=== PATIENT | female | born 1930 | race Native Hawaiian/Other Pacific Islander ===

== ENCOUNTER 2019-12-28 08:17 | Inpatient (IN) | payer MEDICARE, MEDICAID ==
[~2019-12-28] VITALS: Ht 160 cm; Wt 44.5 kg
[2019-12-28] MEDS ORDERED: ONDANSETRON HCL 4 MG/2 ML VIAL IM ONE (08:45)
[2019-12-28] MEDS ORDERED: MORPHINE SULFATE 4 MG/ML SYRINGE IM ONE (08:45)
[2019-12-28 09:01] LABS: BASOPHILS % (AUTO) 0.6 % (0.0-2.0); EOSINOPHILS % (AUTO) 1.9 % (1.0-6.0); HEMATOCRIT 39.1 % (36-46); HEMOGLOBIN 12.8 g/dL (12.0-16.0); LYMPHOCYTES # (AUTO) 1.6 K/uL (1.0-4.8); LYMPHOCYTES % (AUTO) 29.4 % (22.0-44.0); MEAN CORPUSCULAR HGB CONC 32.9 G/dL (31.0-37.0); MEAN CORPUSCULAR VOLUME 95 fL (80-100); MONOCYTES # (AUTO) 0.4 K/uL (0.1-1.0); MONOCYTES % (AUTO) 8.3 % (2.0-9.0); NEUTROPHILS # (AUTO) 3.2 K/uL (1.8-7.7); NEUTROPHILS % (AUTO) 59.8 % (40.0-70.0); PLATELET COUNT (AUTO) 216 K/uL (150-450); RED BLOOD CELL COUNT(AUTO) 4.13 MIL/uL (4.00-5.20); RED CELL DISTRIBUTION WIDTH 13.3 % (11.5-14.5)
[2019-12-28 09:13] LABS: INR 0.9 (0.9-1.1); PROTHROMBIN TIME 9.5 SEC (9.4-11.6)
[2019-12-28 09:14] LABS: ANION GAP 3 mmol/L (8-16); CALCIUM, TOTAL 9.3 mg/dL (8.8-10.5); CARBON DIOXIDE 32 mmol/L (22-29); CHLORIDE 105 mmol/L (98-107); CREATININE 0.85 mg/dL (0.60-1.30); GLUCOSE,RANDOM 100 mg/dL (70-110); POTASSIUM 3.2 mmol/L (3.5-5.1); SODIUM SERUM 140 mmol/L (136-145); UREA NITROGEN, BLOOD 19 mg/dL (7-18)
[2019-12-28 09:18] LABS: GLOMERULAR FILTR. RATE CALC > 60 mL/min (>60)
[2019-12-28 09:20] LABS: ALANINE AMINOTRANSFERASE 34 U/L (12-78); ALBUMIN 3.5 g/dL (3.4-5.0); ALKALINE PHOSPHATASE 73 U/L (46-116); ASPARTATE AMINOTRANSFERASE 24 U/L (15-37); BILIRUBIN,TOTAL 0.5 mg/dL (0.1-1.0); TOTAL PROTEIN, SERUM 7.6 g/dL (6.4-8.2)
[2019-12-28] MEDS ORDERED: MORPHINE SULFATE 4 MG/ML SYRINGE IVP ONE (14:00)
[2019-12-28] MEDS ORDERED: MORPHINE SULFATE 2 MG/ML SYRINGE IVP ONE (14:30)
[2019-12-28] MEDS ORDERED: POTASSIUM CHLORIDE 10% 40 MEQ/30 ML LIQUID UDCUP PO ONE (14:30)
[2019-12-28] MEDS ORDERED: HYDROCODONE/ACETAMINOPHEN 5-325 MG TABLET PO PRN (15:30)
[2019-12-28] MEDS ORDERED: POTASSIUM CHLORIDE 20 MEQ ER TABLET PO PRN (15:30)
[2019-12-28] MEDS ORDERED: POTASSIUM CHL 10 MEQ/WATER 50 ML IV PRN (15:30)
[2019-12-28] MEDS ORDERED: BISACODYL 10 MG RECTAL RECTAL SUPPOSITORY PR PRN (15:30)
[2019-12-28] MEDS ORDERED: ZOLPIDEM TARTRATE 5 MG TABLET PO PRN (15:30)
[2019-12-28] MEDS ORDERED: ACETAMINOPHEN 325 MG TABLET PO PRN (15:30)
[2019-12-28] MEDS ORDERED: MAGNESIUM HYDROXIDE SUSPENSION 30 ML UDCUP PO PRN (15:30)
[2019-12-28] MEDS ORDERED: ONDANSETRON HCL 4 MG/2 ML VIAL IVP PRN (15:30)
[2019-12-28] MEDS ORDERED: CloNIDine HCL 0.1 MG TABLET PO PRN (15:30)
[2019-12-28] MEDS ORDERED: AMLO-387 PO (15:50)
[2019-12-28] MEDS: HEPARIN SODIUM,PORCINE 5,000 UNITS/ML VIAL SQ SCH ×2 (16:04→21:53)
[2019-12-28 17:54] VITALS: BP 157/82
[2019-12-28 19:28] VITALS: BP 142/77
[2019-12-28] MEDS ORDERED: SODIUM CHLORIDE 0.9% 1,000 ML IV ONE (20:30)
[2019-12-28] MEDS: DOCUSATE SODIUM 100 MG CAPSULE PO SCH (20:35)
[2019-12-28] MEDS: MORPHINE SULFATE 2 MG/ML SYRINGE IVP PRN (22:20)
[2019-12-28 22:27] VITALS: BP 142/66
[2019-12-29] MEDS: MORPHINE SULFATE 2 MG/ML SYRINGE IVP PRN (04:12)
[2019-12-29 04:19] VITALS: BP 144/69
[2019-12-29 07:10] LABS: BASOPHILS % (AUTO) 0.1 % (0.0-2.0); EOSINOPHILS % (AUTO) 0 % (1.0-6.0); HEMATOCRIT 37.8 % (36-46); HEMOGLOBIN 12.5 g/dL (12.0-16.0); LYMPHOCYTES # (AUTO) 0.7 K/uL (1.0-4.8); LYMPHOCYTES % (AUTO) 6.7 % (22.0-44.0); MEAN CORPUSCULAR HEMOGLOBIN 31.2 pg (26.0-34.0); MEAN CORPUSCULAR HGB CONC 33.1 G/dL (31.0-37.0); MEAN CORPUSCULAR VOLUME 95 fL (80-100); MONOCYTES # (AUTO) 0.5 K/uL (0.1-1.0); MONOCYTES % (AUTO) 4.8 % (2.0-9.0); NEUTROPHILS # (AUTO) 9.6 K/uL (1.8-7.7); PLATELET COUNT (AUTO) 192 K/uL (150-450); RED CELL DISTRIBUTION WIDTH 13.5 % (11.5-14.5)
[2019-12-29 07:14] LABS: NEUTROPHILS % (AUTO) 88.4 % (40.0-70.0)
[2019-12-29 07:33] LABS: ANION GAP 7 mmol/L (8-16); CALCIUM, TOTAL 9.5 mg/dL (8.8-10.5); CARBON DIOXIDE 30 mmol/L (22-29); CHLORIDE 104 mmol/L (98-107); GLUCOSE,RANDOM 129 mg/dL (70-110); POTASSIUM 3.8 mmol/L (3.5-5.1); SODIUM SERUM 141 mmol/L (136-145); UREA NITROGEN, BLOOD 16 mg/dL (7-18)
[2019-12-29 07:35] LABS: GLOMERULAR FILTR. RATE CALC > 60 mL/min (>60)
[2019-12-29] MEDS: HEPARIN SODIUM,PORCINE 5,000 UNITS/ML VIAL SQ SCH (08:00)
[2019-12-29 08:29] VITALS: BP 149/71
[2019-12-29] MEDS: PANTOPRAZOLE SODIUM 40 MG DR TABLET PO SCH (09:00)
[2019-12-29] MEDS: AmLODIPine BESYLATE 5 MG TABLET PO SCH (09:00)
[2019-12-29] MEDS: ATORVASTATIN CALCIUM 10 MG TABLET PO SCH (09:00)
[2019-12-29] MEDS: DOCUSATE SODIUM 100 MG CAPSULE PO SCH ×2 (09:00→20:35)
[2019-12-29] MEDS ORDERED: BUPIVACAINE HCL 0.25% 50 ML VIAL ONE (10:05)
[2019-12-29] MEDS ORDERED: BUPIVACAINE HCL/PF 0.5% 30 ML VIAL ONE (10:05)
[2019-12-29] MEDS ORDERED: BACITRACIN 28.4 GM OINTMENT TP ONE (10:06)
[2019-12-29] MEDS ORDERED: VANCOMYCIN HCL 1 GM/VIAL ONE (10:07)
[2019-12-29] MEDS ORDERED: MICROFIBRILLAR COLLAGEN 1 GM PACKAGE TP ONE (10:07)
[2019-12-29] MEDS ORDERED: MUPIROCIN CALCIUM 2% 22 GM OINTMENT ONE (10:08)
[2019-12-29] MEDS ORDERED: BUPIVACAINE HCL/PF 0.25% 30 ML VIAL ONE (10:11)
[2019-12-29] MEDS ORDERED: BUPIVACAINE LIPOSOME/PF 1.3%-13.3MG/ML SUSPENSION 20 ML VIAL INJ ONE (10:15)
[2019-12-29] MEDS ORDERED: TRANEXAMIC ACID 1,000 MG in DEXTROSE 5%-WATER 50 ML IV ONE (10:15)
[2019-12-29] MEDS ORDERED: RINGERS SOLUTION,LACTATED 1,000 ML IV ONE (10:41)
[2019-12-29] MEDS ORDERED: ACETAMINOPHEN 1000 MG/ISO-OSM 100 ML IV ONE (10:41)
[2019-12-29] MEDS ORDERED: SODIUM CHLORIDE 0.9% 100 ML ONE (11:03)
[2019-12-29] MEDS ORDERED: HYDROmorphone 2 MG/ML SYRINGE IVP PRN (11:15)
[2019-12-29] MEDS ORDERED: FentaNYL CITRATE-PF 100 MCG/2 ML VIAL IVP PRN (11:15)
[2019-12-29] MEDS ORDERED: ONDANSETRON HCL 4 MG/2 ML VIAL IVP PRN (11:15)
[2019-12-29] MEDS ORDERED: CELECOXIB 200 MG CAPSULE PO ONE (14:00)
[2019-12-29 15:30] VITALS: BP 147/71
[2019-12-29] MEDS: CeFAZolin 1 GM/DEXTROSE 50 ML IV SCH ×2 (16:02→23:07)
[2019-12-29] MEDS: ACETAMINOPHEN 1000 MG/ISO-OSM 100 ML IV SCH (18:44)
[2019-12-29 20:55] VITALS: BP 149/70
[2019-12-30] VITALS (7 sets, daily range): BP systolic 128–154; BP diastolic 57–90
[2019-12-30] MEDS: ACETAMINOPHEN 1000 MG/ISO-OSM 100 ML IV SCH (02:55)
[2019-12-30] MEDS ORDERED: FentaNYL CITRATE-PF 100 MCG/2 ML VIAL IVP ONE (05:32)
[2019-12-30] MEDS ORDERED: HYDROmorphone 2 MG/ML SYRINGE IVP ONE (05:32)
[2019-12-30] MEDS ORDERED: LIDOCAINE 1% 10 ML VIAL IM ONE (05:32)
[2019-12-30] MEDS ORDERED: PROPOFOL 1% 20 ML VIAL IVP ONE (05:32)
[2019-12-30] MEDS ORDERED: GLYCOPYRROLATE 0.2 MG/ML VIAL IM ONE (05:32)
[2019-12-30] MEDS ORDERED: 0.9% SODIUM CHLORIDE 10 ML VIAL IVP ONE (05:32)
[2019-12-30] MEDS ORDERED: EPHEDrine SULFATE 50 MG/ML VIAL IM ONE (05:32)
[2019-12-30] MEDS ORDERED: ONDANSETRON HCL 4 MG/2 ML VIAL IVP ONE (05:32)
[2019-12-30] MEDS ORDERED: NEOSTIGMINE METHYLSULFATE 1 MG/ML 10 ML VIAL IVP ONE (05:32)
[2019-12-30 07:13] LABS: BASOPHILS % (AUTO) 0.1 % (0.0-2.0); EOSINOPHILS % (AUTO) 0.2 % (1.0-6.0); HEMATOCRIT 34.2 % (36-46); HEMOGLOBIN 11.4 g/dL (12.0-16.0); LYMPHOCYTES # (AUTO) 0.8 K/uL (1.0-4.8); LYMPHOCYTES % (AUTO) 7.8 % (22.0-44.0); MEAN CORPUSCULAR HEMOGLOBIN 31.4 pg (26.0-34.0); MEAN CORPUSCULAR HGB CONC 33.2 G/dL (31.0-37.0); MEAN CORPUSCULAR VOLUME 95 fL (80-100); MONOCYTES # (AUTO) 0.7 K/uL (0.1-1.0); MONOCYTES % (AUTO) 6.2 % (2.0-9.0); NEUTROPHILS # (AUTO) 9.2 K/uL (1.8-7.7); PLATELET COUNT (AUTO) 159 K/uL (150-450); RED BLOOD CELL COUNT(AUTO) 3.61 MIL/uL (4.00-5.20); RED CELL DISTRIBUTION WIDTH 13.3 % (11.5-14.5)
[2019-12-30 07:14] LABS: NEUTROPHILS % (AUTO) 85.7 % (40.0-70.0)
[2019-12-30 07:24] LABS: ANION GAP 7 mmol/L (8-16); CALCIUM, TOTAL 8.5 mg/dL (8.8-10.5); CARBON DIOXIDE 31 mmol/L (22-29); CHLORIDE 103 mmol/L (98-107); CREATININE 0.65 mg/dL (0.60-1.30); GLUCOSE,RANDOM 104 mg/dL (70-110); POTASSIUM 3.6 mmol/L (3.5-5.1); SODIUM SERUM 141 mmol/L (136-145); UREA NITROGEN, BLOOD 15 mg/dL (7-18)
[2019-12-30 07:28] LABS: GLOMERULAR FILTR. RATE CALC > 60 mL/min (>60)
[2019-12-30] MEDS: DOCUSATE SODIUM 100 MG CAPSULE PO SCH ×2 (08:26→21:00)
[2019-12-30] MEDS: ATORVASTATIN CALCIUM 10 MG TABLET PO SCH (08:27)
[2019-12-30] MEDS: PANTOPRAZOLE SODIUM 40 MG DR TABLET PO SCH (08:27)
[2019-12-30] MEDS: AmLODIPine BESYLATE 5 MG TABLET PO SCH (08:27)
[2019-12-30] MEDS: ENOXAPARIN SODIUM 40 MG/0.4 ML PF SYRINGE SQ SCH (08:28)
[2019-12-30] MEDS: OXYGEN THERAPY IH SCH ×2 (08:29→20:00)
[2019-12-30] MEDS ORDERED: SODIUM CHLORIDE 0.9% 500 ML IV ONE ×2 (11:45→12:00)
[2019-12-30] MEDS ORDERED: BISACODYL 5 MG EC TABLET PO PRN (13:00)
[2019-12-31 05:21] VITALS: BP 131/54
[2019-12-31 05:34] LABS: BASOPHILS % (AUTO) 0.3 % (0.0-2.0); EOSINOPHILS % (AUTO) 0.6 % (1.0-6.0); HEMATOCRIT 32.2 % (36-46); HEMOGLOBIN 10.6 g/dL (12.0-16.0); LYMPHOCYTES # (AUTO) 0.9 K/uL (1.0-4.8); LYMPHOCYTES % (AUTO) 8.6 % (22.0-44.0); MEAN CORPUSCULAR HEMOGLOBIN 31.1 pg (26.0-34.0); MEAN CORPUSCULAR HGB CONC 32.9 G/dL (31.0-37.0); MEAN CORPUSCULAR VOLUME 95 fL (80-100); MONOCYTES # (AUTO) 0.9 K/uL (0.1-1.0); MONOCYTES % (AUTO) 9.3 % (2.0-9.0); NEUTROPHILS # (AUTO) 8.1 K/uL (1.8-7.7); NEUTROPHILS % (AUTO) 81.2 % (40.0-70.0); PLATELET COUNT (AUTO) 148 K/uL (150-450); RED BLOOD CELL COUNT(AUTO) 3.41 MIL/uL (4.00-5.20); RED CELL DISTRIBUTION WIDTH 13.6 % (11.5-14.5)
[2019-12-31 05:57] LABS: ANION GAP 7 mmol/L (8-16); CALCIUM, TOTAL 8.6 mg/dL (8.8-10.5); CARBON DIOXIDE 30 mmol/L (22-29); CHLORIDE 104 mmol/L (98-107); GLUCOSE,RANDOM 114 mg/dL (70-110); POTASSIUM 3.3 mmol/L (3.5-5.1); SODIUM SERUM 141 mmol/L (136-145); UREA NITROGEN, BLOOD 12 mg/dL (7-18)
[2019-12-31 06:04] LABS: GLOMERULAR FILTR. RATE CALC > 60 mL/min (>60)
[2019-12-31] MEDS: OXYGEN THERAPY IH SCH (08:00)
[2019-12-31 08:16] VITALS: BP 121/58
[2019-12-31] MEDS: DOCUSATE SODIUM 100 MG CAPSULE PO SCH (09:00)
[2019-12-31] MEDS: AmLODIPine BESYLATE 5 MG TABLET PO SCH (10:19)
[2019-12-31] MEDS: ENOXAPARIN SODIUM 40 MG/0.4 ML PF SYRINGE SQ SCH (10:19)
[2019-12-31] MEDS: PANTOPRAZOLE SODIUM 40 MG DR TABLET PO SCH (10:19)
[2019-12-31] MEDS: ATORVASTATIN CALCIUM 10 MG TABLET PO SCH (10:19)
[2019-12-31 11:40] VITALS: BP 149/68
[2019-12-31 15:58] VITALS: BP 143/69
== END 2019-12-31 17:30 | DRG 481 ==
LOC: EMS 08:17 → 4E 16:30
PROVIDERS: ADMIT Internal Medicine; ATTEND Internal Medicine
PROC: 0QS604Z Reposition Right Upper Femur with Internal Fixation Device, Open Approach (ICD-10-PCS; 2019-12-29)
PROC: 0RU Upper Joints, Supplement (ICD-10-PCS; 2019-12-29)
PROC: 01N50ZZ Release Median Nerve, Open Approach (ICD-10-PCS; 2019-12-29)
PROC: 0PSH04Z Reposition Right Radius with Internal Fixation Device, Open Approach (ICD-10-PCS; 2019-12-29)
PROC: 0QU60KZ Supplement Right Upper Femur with Nonautologous Tissue Substitute, Open Approach (ICD-10-PCS; principal; 2019-12-29 11:30)
DX: S72.011A Unspecified intracapsular fracture of right femur, initial encounter for closed fracture (principal); S52.601A Unspecified fracture of lower end of right ulna, initial encounter for closed fracture; M25.051 Hemarthrosis, right hip; E78.5 Hyperlipidemia, unspecified; I10 Essential (primary) hypertension; K59.00 Constipation, unspecified; W18.30XA Fall on same level, unspecified, initial encounter; G56.01 Carpal tunnel syndrome, right upper limb; W18.39XA Other fall on same level, initial encounter; Y93.89 Activity, other specified; Y92.89 Other specified places as the place of occurrence of the external cause; Y99.8 Other external cause status; R00.0 Tachycardia, unspecified; E78.00 Pure hypercholesterolemia, unspecified
CPT/HCPCS: 29105; 72100; 72131; 73502; 84132; 87081; 93306; 96372; 96374; 96376; 97110; 97162; 97166; 97530; C9290; G0378; J0131; J0690; J1170; J1644; J1650; J2270; J2405; J2704; J3010; J3370; J3490; J7030; J7040; J7050; J7060; J7120